=== PATIENT | female | born 2000 | race Caucasian/White ===

== ENCOUNTER 2022-03-31 04:31 | Inpatient (IN) ==
[2022-03-31] MEDS ORDERED: ONDANSETRON INJ 2 MG/ML 2 ML VIAL IV STA ×2 (04:58→15:25)
[2022-03-31] MEDS ORDERED: SODIUM CHLORIDE 0.9% 1000ML 1,000 ML IV SCH (05:00)
[2022-03-31] MEDS: MoRPHine SULFATE 4 MG/ML 1 ML CARP\\VIAL IV PRN ×3 (05:22→18:40)
[2022-03-31 05:51] LABS: Basophils # (auto) 0.07 K/uL (0-0.2); Basophils % (auto) 0.4 %; Eosinophils # (auto) 0.17 K/uL (0-0.50); Eosinophils % (auto) 1.1 %; Hematocrit (blood only) 36.7 % (34.1-44.9); Hemoglobin 12.6 g/dl (12.0-16.0); Immature Granulocytes # (auto) 0.05 K/uL (0.00-0.02); Immature Granulocytes % (auto) 0.3 %; Lymphocytes # (auto) 3.15 K/uL (1.2-3.4); Lymphocytes % (auto) 19.7 %; Mean Corpuscular Hemoglobin 32.3 pg (25.0-34.0); Mean Corpuscular Hgb Conc 34.3 g/dL (32.0-36.0); Mean Corpuscular Volume 94.1 fL (80.0-100.0); Mean Platelet Volume 9.5 fL (9.4-12.3); Monocytes # (auto) 1.22 K/uL (0.24-0.82); Monocytes % (auto) 7.6 %; Neutrophils # (auto) 11.37 K/uL (1.4-6.5); Neutrophils % (auto) 70.9 %; Platelet Count 277 K/uL (130-400); RDW Coefficient of Variation 12.2 % (11.5-14.5); RDW Standard Deviation 42.5 fL (36.4-46.3); White Blood Count 16.03 K/ul (4.8-10.8)
[2022-03-31 05:56] LABS: Appearance Urine Cloudy (Clear); Bacteria Urine Automated 1+ (Negative); Bilirubin Urine Negative (Negative); Blood Urine 1+ (Negative); Color Urine Yellow; Epithelial Cell Urine Auto >30 /lpf (0-5); Glucose Urine UA Negative (Negative); Ketones Urine Negative (Negative); Leukocyte Esterase Urine 2+ (Negative); Nitrite Urine Negative (Negative); Protein Urine 2+ (Negative); Specific Gravity Urine 1.017 (1.000-1.030); Urobilinogen Urine Negative (Negative); WBC Urine Automated >30 /hpf (0-5); pH Urine 5.5 (4.5-7.5)
[2022-03-31 06:13] LABS: Albumin Globulin Ratio 1.3 (0.9-2); Albumin Level 4.3 gm/dl (3.4-5.0); BUN Creatinine Ratio 23.9 (10-20); Bilirubin,Total 0.7 mg/dl (0.2-1.0); Calcium 9.8 mg/dl (8.5-10.1); Creatinine Clr Calc Pharmacy 118.5 ml/min; Est GFR (African American) 144.6 ml/min; Est GFR (Non-African American) 124.8 ml/min; Globulin 3.2 gm/dl (2.5-4.0); Potassium 3.7 mmol/L (3.5-5.1); Total Protein 7.5 gm/dl (6.0-8.3)
[2022-03-31] MEDS ORDERED: cefTRIAXone SODIUM 1,000 MG in DEXTROSE 5% AD-VAN 50 ML IV STA (06:44)
[2022-03-31] MEDS ORDERED: OPTIRAY 350 100ml IV ONE (07:20)
--- NOTE | 2022-03-31 07:21 | Emergency Department Note ---
ED Visit Note Patient case signed out to me at 0700 hrs. by Krish Tracy PA-C at shift change on 03/31/2022. Patient was pending CT scan of the abdomen/pelvis with IV and oral contrast. Please refer to his note regarding chief complaint, ROS, HPI, PE, MDM and decision-making until point of signout. CT scan did result with dictated report as below. In the setting of right flank pain with an infected renal lesion with associated cystitis/right-sided pyelitis I do believe that further evaluation and management in the inpatient setting is warranted. Patient a lreafara underwent IV antibiotics as ordered by Krish Tracy PA-C. Case then discussed with the urology service, OSWALDO Woodson at 8:12 AM and subsequently [facility] 0915[facility]. Please refer to further documentation regarding her stay. I did add on additional blood work studies with blood cultures pending. CT OF THE ABDOMEN AND PELVIS WITH CONTRAST CLINICAL HISTORY: Right abdominal pain. hx kidney cyst. COMPARISON STUDY: None. TECHNIQUE: Following IV administration of 85 mL of Optiray, axial images of the abdomen and pelvis were obtained from the lung bases to the proximal femurs. Images were reviewed in the axial, sagittal, and coronal planes. IV contrast was administered without complication. Automated exposure control was utilized for the study. A dose lowering technique was utilized adhering to the principles of ALARA. CT DOSE: 305.65 mGy.cm FINDINGS: Groundglass opacities within the right middle lobe favors atelectasis. No pneumatosis, free air or portal venous gas is present. The liver, spleen, adrenal glands, left kidney and pancreas are normal. Note is made of a 5.5 x 4.8 x 4.4 cm hypodense lesion within the upper pole of the right kidney. There is mild enhancement of the wall with possible subtle septation. There is a small amount of adjacent fluid. There is no hydronephrosis. Bladder wall thickening is noted with increased mucosal enhancement. In addition, there is subtle enhancement of the right ureter. There are no urinary calculi. No evidence for a bowel obstruction. The appendix is normal. Small amount of fluid within the pelvis is present. Major vasculature is patent. IMPRESSION: 5.5 cm right upper pole renal lesion with mildly thickened, enhancing wall and adjacent fluid. This is suggestive of an infected renal cyst. Associated cystitis and right-sided pyelitis. ACT 112: Negative or not required by law. Electronically signed by: Lance Gerard M.D. 03/31/2022 7:50 AM .
--- NOTE | 2022-03-31 07:52 | CT Scan Report ---
CT OF THE ABDOMEN AND PELVIS WITH CONTRAST CLINICAL HISTORY: Right abdominal pain. hx kidney cyst. COMPARISON STUDY: None. TECHNIQUE: Following IV administration of 85 mL of Optiray, axial images of the abdomen and pelvis we re obtained from the lung bases to the proximal femurs. Images were reviewed in the axial, sagittal, and coronal planes. IV contrast was administered without complication. Automated exposure control wa s utilized for the study. A dose lowering technique was utilized adhering to the principles of ALARA . CT DOSE: 305.65 mGy.cm FINDINGS: Groundglass opacities within the right middle lobe favors atelectasis. No pneumatosis, free air or portal venous gas is present. The liver, spleen, adrenal glands, left kidney and pancreas are normal. Note is made of a 5.5 x 4.8 x 4.4 cm hypodense lesion within the upper pole of the right kid beverley. There is mild enhancement of the wall with possible subtle septation. There is a small amount of adjacent fluid. There is no hydronephrosis. Bladder wall thickening is noted with increased mucosal enhancement. In addition, there is subtle enhancement of the right ureter. There are no urinary calcu li. No evidence for a bowel obstruction. The appendix is normal. Small amount of fluid within the pel vis is present. Major vasculature is patent. IMPRESSION: 5.5 cm right upper pole renal lesion with mildly thickened, enhancing wall and adjacent f luid. This is suggestive of an infected renal cyst. Associated cystitis and right-sided pyelitis. ACT 112: Negative or not required by law. Electronically signed by: Lance Gerard M.D. 03/31/2022 7:50 AM
--- NOTE | 2022-03-31 11:21 | Urology Consultation ---
Date of Consultation March 31, 2022 Assessment & Plan (1) Pyelonephritis: (2) Renal cyst, right: (3) Right flank pain: Plan 21-year-old female admitted with severe right flank pain secondary to possible infected right renal cyst, pyelonephritis. -CT abdomen pelvis demonstrated a 5.5 cm right upper pole renal lesion with mildly thickened, enhancing wall and adjacent fluid. This is suggestive of an infected renal cyst with associated cystitis and right-sided pyelitis. -Low-grade temp this morning at 37.6C. Hemodynamically stable. -Labs show leukocytosis of 16.03 and normal kidney function. -UA with 1+ blood, 2+ LE, 1+bacteria. Urine and blood cultures pending. On IV Ceftriaxone. -No acute intervention warranted at this time. -Recommend continue with supportive care and antibiotic therapy. Follow cultures and tailor as data becomes available. -Will continue to monitor fever curve and clinical status. -Low threshold to transfer for drainage if she does not improve clinically or for any decline in status. -Discussed with hospital team. -Urology will follow closely. Case discussed with Dr. Steven, on-call urologist. Supervising Physician Co-Signing Physician Notes Discussed patient with ROMI. Agree with plan. Agree with note. Reasonable to manage conservatively with antibiotics but if does not improve subjectively or clinically will need transfer to tertiary care center for percutaneous aspiration versus drainage of cyst History of Present Illness Reason for Consultation: Pyelonephritis, ?infected cyst History of Present Illness 21-year-old female who presented to the emergency department today with severe right flank pain and found to have a possible infected renal cyst, associated cystitis/right-sided pyelitis. On arrival she was afebrile and hemodynamically stable. Recheck of temperature earlier this morning showing low-grade temp at 37.6C. Labs revealed a leukocytosis of 16, stable hemoglobin, and normal renal function. Urinalysis notable for 1+ blood, negative nitrate, 2+ LE, >30WBC, 10-30RBC, >30Epi, 1+bacteria. Urine and blood cultures were obtained. She was started on IV ceftriaxone. Patient admitted to medicine for further management. CT abdomen pelvis- 5.5 cm right upper pole renal lesion with mildly thickened, enhancing wall and adjacent fluid. This is suggestive of an infected renal cyst. Associated cystitis and right-sided pyelitis. Urology consulted for pyelonephritis, question of infected cyst. Patient examined at bedside this AM in the ED. Asleep on arrival, awakened to name. No acute distress. Still with right flank pain, managing with IV pain medication. Denies fevers or chills at present. No nausea or vomiting. Has been NPO. Voiding without issue. Denies hematuria or dysuria. Denies baseline urinary symptoms or issues. She does report an incidental finding of a right renal cyst approximately 1-2 years ago. She was seen at [facility] in [facility] for follow-up and was told it was a benign finding and nothing further to do. She has not had a recent follow-up. Denies pertinent family history. 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 Beliefs That Will Affect Care: None Current Living Situation: Family Current Living Situation Comment: at college herself Other Information That Helps Us Care for You: No Feels Safe at Home: Yes Safety Concerns: Feels Safe At This Time Assistive Devices: None Review of Systems Review of Systems: All systems reviewed & are unremarkable except as noted in HPI & below Physical Exam Constitutional: well developed and well nourished; no acute distress Eyes: PERRL, conjunctivae normal, anicteric sclerae ENMT: external ear and nose normal, oropharynx normal Neck: normal visual inspection Respiratory: normal respiratory effort; no respiratory distress and no labored breathing Musculoskeletal: Head/Neck/Chest: normocephalic Skin: No visible rashes or lesions Neurologic: awake Psychiatric: Orientation: alert, oriented x 3 and cooperative Genitourinary: Right sided tenderness with palpation Results & Data ([facility]) Vital Signs (Past 12 Hours) Vital Signs Temp Pulse Pulse Resp BP BP Pulse Ox 03/31/22 09:30 89 21 112/60 97 03/31/22 07:30 37.6 C H 94 H 19 137/88 100 03/31/22 05:30 86 20 107/63 100 03/31/22 04:37 36.4 C L 78 18 113/75 99 O2 Del Method 03/31/22 09:30 Room Air 03/31/22 07:30 Room Air 03/31/22 05:30 Room Air 03/31/22 04:37 Room Air PG Care Time/CCT Total # of Minutes Spent Total Time Spent with Patient: Total time spent is greater than 50% in coordination of care (as documented) at patient's floor/unit and/or counseling patient: Coding Level of Care Code INP/OBS CONSULT LVL 3, 45 MIN Diagnoses Pyelonephritis N12 Renal cyst, right N28.1 Right flank pain R10.9
[2022-03-31] MEDS ORDERED: ACETAMINOPHEN 1,000 MG/100 ML VIAL IV STA (15:29)
[2022-03-31] MEDS ORDERED: ACETAMINOPHEN 325 MG TAB PO PRN (15:29)
[2022-03-31] MEDS: SODIUM CHLORIDE 0.9% 1000ML 1,000 ML IV SCH ×2 (15:38→22:17)
[2022-03-31] MEDS: ACETAMINOPHEN 325 MG TAB PO SCH (19:32)
--- NOTE | 2022-03-31 22:10 | History & Physical Report ---
Date of Service March 31, 2022 Assessment & Plan (1) Pyelonephritis: Plan: Acute pyelonephritis in a 21 yo female with 1 week of right flank pain will continue IV antibiotics: 1 [address] on IVF await cultures. Prior to being consulted: blood cultures were drawn after antibiotics were given by ED. Urine culture was obtained prior to antibiotics. consulted Urology. (2) Sepsis due to urinary tract infection: Plan: Leukocytosis, tachycardia, fever due to above. will monitor. Doubt abscess. If no improvement, will consider transfer to tertiary center for drainage. lactic acid was normal (3) Renal cyst, right: Plan: doubt this is playing any role Admission and Anticipated Discharge Date Admission Date: March 31, 2022 History of Present Illness Chief Complaint: right flank pain Primary Care Provider: [facility] 21 yo female with history of a right renal cyst presents tot ED with right sided flank pain that began about 1 week ago. Pain was dull and non radiating, but gradually worsened to the point where the pain woke her up at 3 am this morning. Patient reports having subjective fever, nausea. Patient reports no other symptoms, such as urgency, dysuria. Patient was found to be in sepsis in the ED, tachycardia, fever, and leukocytosis. Hospitalist consult was called. 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 Beliefs That Will Affect Care: None Current Living Situation: Family Current Living Situation Comment: at college herself Other Information That Helps Us Care for You: No Feels Safe at Home: Yes Safety Concerns: Feels Safe At This Time Assistive Devices: None Review of Systems Constitutional: + fever, + chills, + body aches and + fatigue Eyes: no blind spots Ear, Nose, Mouth, Throat: no ear pain and no tinnitus Respiratory: no cough Cardiovascular: no chest pain Gastrointestinal: no abdominal pain Genitourinary: no dysuria and no urinary hesitancy Musculoskeletal: + back pain Integumentary: no acne Neurologic: no gait abnormality Psychiatric: no behavioral changes Endocrine: no fatigue Hematologic / Lymphatic: no easy bleeding Allergy / Immunological: no GI upset with certain foods Physical Exam Constitutional: WD/WN, vitals as above Eyes: PERRL, conjunctivae normal, anicteric sclerae ENMT: external ear and nose normal, oropharynx normal Neck: trachea midline, no thyromegaly Respiratory: normal respiratory effort, lungs clear to auscultation Cardiovascular: Rate/Rhythm: regular rhythm and + tachycardic Heart Sounds: normal S1 and normal S2 Gastrointestinal (Abdomen): normal bowel sounds, soft, nontender, no hepatosplenomegaly Musculoskeletal: no cyanosis or clubbing, extremities motor strength 5/5 Right CVA tenderness Skin: no rashes, warm and dry Neurologic: PERRL, EOMI, accommodation nl, no face palsy, no dysarthria Psychiatric: A+Ox3, euthymic affect Lymphatic: no cervical or axillary lymphadenopathy Results & Data Results & Data ([facility]) Vital Signs (Past 12 Hours) Vital Signs Temp Pulse Pulse Resp BP Pulse Ox O2 Del Method 03/31/22 18:34 37 C 88 16 119/67 96 Room Air 03/31/22 17:00 71 18 102/70 98 Room Air 03/31/22 17:48 37.2 C 03/31/22 15:05 37.9 C H 87 16 97 Room Air 03/31/22 15:04 37.9 C H 03/31/22 14:58 86 17 105/69 97 Room Air 03/31/22 11:06 89 17 111/64 94 Room Air PG Care Time/CCT Total # of Minutes Spent Total Time Spent with Patient: Total time spent is greater than 50% in coordination of care (as documented) at patient's floor/unit and/or counseling patient: Coding Level of Care Code 56669 INT INP/OBS CARE 3/75MIN Diagnoses Pyelonephritis N12 Sepsis due to urinary tract infection A41.9; N39.0 Renal cyst, right N28.1
[2022-04-01] MEDS: ACETAMINOPHEN 325 MG TAB PO SCH ×2 (00:36→06:16)
[2022-04-01] MEDS: SODIUM CHLORIDE 0.9% 1000ML 1,000 ML IV SCH ×4 (04:44→20:39)
--- NOTE | 2022-04-01 05:30 | Emergency Department Note ---
History of Present Illness General Chief complaint: Flank Pain Stated complaint: CYST ON RIGHT KIDNEY, NAUSEA Time Seen by Provider: 03/31/22 04:42 History of Present Illness Maximum Pain Intensity: 7 This is a 21-year-old female presenting to the emergency department for evaluation of pain in her right side back/flank. This has been slowly increasing over the past week but this worsened tonight when she woke up. The patient is usually healthy, but reports that she does have cyst on her right kidney. Patient has not had fevers, but is very nauseated. No significant change in going to the bathroom. She does not have a history of abdominal surgery. She rates her current discomfort a 7/10. No chest pain, chest tightness, shortness of breath. No rash. She denies . Home Medications Medication Instructions Recorded Confirmed Type No Known Home Medications 12/28/19 12/28/19 History Allergies Allergy/AdvReac Type Severity Reaction Status Date / Time No Known Allergies Allergy Verified 12/28/19 06:42 Past Med/Surg History Medical History No pertinent family history No pertinent past medical history Surgical History No pertinent past surgical history Social History Smoking Status: Never smoker Second Hand Exposure: No; Do You Dip or Chew Tobacco: No; Hx Alcohol Use: Yes Hx Substance Use: No Preferred Language: [place] Zealander Communication Ability: Effective Emt B Required: No Beliefs That Will Affect Care: None Current Living Situation: Family Current Living Situation Comment: at college herself Other Information That Helps Us Care for You: No Feels Safe at Home: Yes Safety Concerns: Feels Safe At This Time Assistive Devices: None Review of Systems A total of 10 systems reviewed and were otherwise negative Physical Exam Vital Signs Vital Signs - 24 hr 03/31/22 05:30 03/31/22 07:30 Temperature 37.6 C H Temperature Source Oral Pulse Rate [Right Radial] 86 94 H Pulse Rhythm [Right Radial] Regular Pulse Strength [Right Radial] Normal Respiratory Rate 20 19 Respiratory Effort / Characteristics Non-Labored Spontaneous Non-Labored Spontaneous Respiratory Depth Normal Normal Respiratory Pattern Regular Regular Blood Pressure [Right Arm] 107/63 137/88 Blood Pressure Mean [Right Arm] 77 104 Blood Pressure Position [Right Arm] Lying Pulse Oximetry 100 100 Oxygen Delivery Method Room Air Room Air VITALS: Vitals are noted on the nurse's note and reviewed by myself. Vital signs stable. GENERAL: Well-developed, well-nourished, white female, who is uncomfortable on presentation. HEAD: Normocephalic atraumatic. HEART: Regular rate and rhythm without murmurs gallops or rubs. LUNGS: Clear to auscultation bilaterally without wheezes, rales or rhonchi. No retractions or accessory muscle use. ABDOMEN: Positive normal bowel sounds x 4. Soft, nontender, without masses or organomegaly. No guarding or rebound tenderness. MUSCULOSKELETAL: No muscle atrophy, erythema, or edema noted. Full range of motion in all extremities. No tenderness to palpation. Normal gait. Strength 5/5 throughout. NEURO: Patient was alert and oriented to person place and time. CN II through XII grossly intact. Course Administered Medications Acetaminophen (Acetaminophen 325 Mg Tab) 650 mg PO Q6HWA [facility] Stop: 04/30/22 19:59 Last Admin: 04/01/22 00:36 Dose: 650 mg Documented By: Admin: 03/31/22 19:32 Dose: 650 mg Documented By: JORDIN Sodium Chloride (Nss 1000ml) 1,000 mls @ 150 mls/hr IV .Q6H40M [facility] Stop: 04/01/22 11:29 Last Admin: 04/01/22 04:44 Dose: 150 mls/hr Documented By: Infusion: 04/01/22 04:43 Dose: 0 mls/hr Documented By: Admin: 03/31/22 22:17 Dose: 150 mls/hr Documented By: Infusion: 03/31/22 22:17 Dose: 150 mls/hr Documented By: Admin: 03/31/22 15:38 Dose: 150 mls/hr Documented By: JACQUIE Morphine Sulfate (Morphine Sulfate 4 Mg/Ml 1 Ml Carp\Vial) 4 mg IV Q30M PRN PRN Reason: Pain Stop: 04/14/22 04:57 Last Admin: 03/31/22 18:40 Dose: 4 mg Documented By: Admin: 03/31/22 09:34 Dose: 4 mg Documented By: Admin: 03/31/22 05:22 Dose: 4 mg Documented By: JLUIS Discontinued Medications Sodium Chloride (Nss 1000ml) 1,000 mls @ 999 mls/hr IV .Q1H1M BIN Stop: 03/31/22 06:00 Last Infusion: 03/31/22 06:26 Dose: 0 mls/hr Documented By: Admin: 03/31/22 05:22 Dose: 999 mls/hr Documented By: JLUIS Ceftriaxone Sodium 1,000 mg/ (Dextrose) 50 mls @ 100 mls/hr IV NOW STA Stop: 03/31/22 07:13 Last Infusion: 03/31/22 08:14 Dose: 0 mls/hr Documented By: Admin: 03/31/22 07:43 Dose: 100 mls/hr Documented By: JLUIS Acetaminophen (Ofirmev) 1,000 mg in 100 mls @ 400 mls/hr IV NOW STA Stop: 03/31/22 15:43 Last Infusion: 03/31/22 18:40 Dose: 0 mls/hr Documented By: Admin: 03/31/22 15:37 Dose: 400 mls/hr Documented By: JACQUIE Ioversol (Optiray 350 100ml) 85 ml IV ONCE ONE Stop: 03/31/22 07:21 Last Admin: 03/31/22 07:21 Dose: 85 ml Documented By: JEFFERSON Ondansetron HCl (Ondansetron Inj 2 Mg/Ml 2 Ml Vial) 4 mg IV NOW STA Stop: 03/31/22 04:59 Last Admin: 03/31/22 05:22 Dose: 4 mg Documented By: JLUIS Ondansetron HCl (Ondansetron Inj 2 Mg/Ml 2 Ml Vial) 4 mg IV NOW STA Stop: 03/31/22 15:26 Last Admin: 03/31/22 15:36 Dose: 4 mg Documented By: JACQUIE Medical Decision Making Differential Diagnosis Differential diagnosis: Etiologies such as shingles, pyelonephritis/UTI, renal colic, appendicitis, diverticulitis, mesenteric ischemia, torsion, aortic pathology, infections, inflammatory bowel disease, bowel obstruction, PUD, biliary pathology, as well as others were entertained. Laboratory Data 03/31/22 05:25 03/31/22 05:25 Lab Results 03/31/22 03/31/22 03/31/22 Range/Units 05:25 05:25 05:25 WBC 16.03 H (4.8-10.8) K/ul RBC 3.90 L (3.93-5.22) M/uL Hgb 12.6 (12.0-16.0) g/dl Hct 36.7 (34.1-44.9) % MCV 94.1 (80.0-100.0) fL MCH 32.3 (25.0-34.0) pg MCHC 34.3 (32.0-36.0) g/dL RDW Std Deviation 42.5 (36.4-46.3) fL RDW Coeff of Maximo 12.2 (11.5-14.5) % Plt Count 277 (130-400) K/uL MPV 9.5 (9.4-12.3) fL Immature Gran % (Auto) 0.3 % Neut % (Auto) 70.9 % Lymph % (Auto) 19.7 % [place] % (Auto) 7.6 % Eos % (Auto) 1.1 % Baso % (Auto) 0.4 % Neut # (Auto) 11.37 H (1.4-6.5) K/uL Lymph # (Auto) 3.15 (1.2-3.4) K/uL [place] # (Auto) 1.22 H (0.24-0.82) K/uL Eos # (Auto) 0.17 (0-0.50) K/uL Baso # (Auto) 0.07 (0-0.2) K/uL Immature Gran # (Auto) 0.05 H (0.00-0.02) K/uL Sodium 137 (136-145) mmol/L Potassium 3.7 (3.5-5.1) mmol/L Chloride 103 (98-107) mmol/L Carbon Dioxide 28 (21-32) mmol/L Anion Gap 6 (3-11) BUN 16 (6-23) mg/dl Creatinine 0.67 (0.6-1.2) mg/dl Est Cr Clr Drug Dosing 118.5 ml/min Est GFR ( Amer) 144.6 ml/min Est GFR (Non-Af Amer) 124.8 ml/min BUN/Creatinine Ratio 23.9 H (10-20) Glucose 86 (70-99(Fasting)) mg/dl Lactate (0.4-2.0) mmol/L Calcium 9.8 (8.5-10.1) mg/dl Total Bilirubin 0.7 (0.2-1.0) mg/dl AST 23 (13-39) U/L ALT 25 (7-52) U/L Alkaline Phosphatase 56 (34-104) U/L Total Protein 7.5 (6.0-8.3) gm/dl Albumin 4.3 (3.4-5.0) gm/dl Globulin 3.2 (2.5-4.0) gm/dl Albumin/Globulin Ratio 1.3 (0.9-2) Lipase 16 (11-82) U/L Procalcitonin (0-0.5) ng/ml Urine Color Yellow Urine Appearance Cloudy A (Clear) Urine pH 5.5 (4.5-7.5) Ur Specific [place] 1.017 (1.000-1.030) Urine Protein 2+ H (Negative) Urine Glucose (UA) Negative (Negative) Urine Ketones Negative (Negative) Urine Blood 1+ H (Negative) Urine Nitrite Negative (Negative) Urine Bilirubin Negative (Negative) Urine Urobilinogen Negative (Negative) Ur Leukocyte Esterase 2+ H (Negative) Urine WBC (Auto) >30 H (0-5) /hpf Urine RBC (Auto) 10-30 H (0-4) /hpf U Hyaline Cast (Auto) 1-5 (0-5) /lpf U Epithel Cells (Auto) >30 H (0-5) /lpf Urine Bacteria (Auto) 1+ H (Negative) POC Ur Test (NEG) SARS-CoV-2, RNA, NAAT (NEGATIVE) 03/31/22 03/31/22 03/31/22 Range/Units 05:25 08:27 08:27 WBC (4.8-10.8) K/ul RBC (3.93-5.22) M/uL Hgb (12.0-16.0) g/dl Hct (34.1-44.9) % MCV (80.0-100.0) fL MCH (25.0-34.0) pg MCHC (32.0-36.0) g/dL RDW Std Deviation (36.4-46.3) fL RDW Coeff of Maximo (11.5-14.5) % Plt Count (130-400) K/uL MPV (9.4-12.3) fL Immature Gran % (Auto) % Neut % (Auto) % Lymph % (Auto) % [place] % (Auto) % Eos % (Auto) % Baso % (Auto) % Neut # (Auto) (1.4-6.5) K/uL Lymph # (Auto) (1.2-3.4) K/uL [place] # (Auto) (0.24-0.82) K/uL Eos # (Auto) (0-0.50) K/uL Baso # (Auto) (0-0.2) K/uL Immature Gran # (Auto) (0.00-0.02) K/uL Sodium (136-145) mmol/L Potassium (3.5-5.1) mmol/L Chloride (98-107) mmol/L Carbon Dioxide (21-32) mmol/L Anion Gap (3-11) BUN (6-23) mg/dl Creatinine (0.6-1.2) mg/dl Est Cr Clr Drug Dosing ml/min Est GFR ( Amer) ml/min Est GFR (Non-Af Amer) ml/min BUN/Creatinine Ratio (10-20) Glucose (70-99(Fasting)) mg/dl Lactate 0.9 (0.4-2.0) mmol/L Calcium (8.5-10.1) mg/dl Total Bilirubin (0.2-1.0) mg/dl AST (13-39) U/L ALT (7-52) U/L Alkaline Phosphatase (34-104) U/L Total Protein (6.0-8.3) gm/dl Albumin (3.4-5.0) gm/dl Globulin (2.5-4.0) gm/dl Albumin/Globulin Ratio (0.9-2) Lipase (11-82) U/L Procalcitonin < 0.05 (0-0.5) ng/ml Urine Color Urine Appearance (Clear) Urine pH (4.5-7.5) Ur Specific [place] (1.000-1.030) Urine Protein (Negative) Urine Glucose (UA) (Negative) Urine Ketones (Negative) Urine Blood (Negative) Urine Nitrite (Negative) Urine Bilirubin (Negative) Urine Urobilinogen (Negative) Ur Leukocyte Esterase (Negative) Urine WBC (Auto) (0-5) /hpf Urine RBC (Auto) (0-4) /hpf U Hyaline Cast (Auto) (0-5) /lpf U Epithel Cells (Auto) (0-5) /lpf Urine Bacteria (Auto) (Negative) POC Ur Test NEG (NEG) SARS-CoV-2, RNA, NAAT (NEGATIVE) 03/31/22 Range/Units 08:30 WBC (4.8-10.8) K/ul RBC (3.93-5.22) M/uL Hgb (12.0-16.0) g/dl Hct (34.1-44.9) % MCV (80.0-100.0) fL MCH (25.0-34.0) pg MCHC (32.0-36.0) g/dL RDW Std Deviation (36.4-46.3) fL RDW Coeff of Maximo (11.5-14.5) % Plt Count (130-400) K/uL MPV (9.4-12.3) fL Immature Gran % (Auto) % Neut % (Auto) % Lymph % (Auto) % [place] % (Auto) % Eos % (Auto) % Baso % (Auto) % Neut # (Auto) (1.4-6.5) K/uL Lymph # (Auto) (1.2-3.4) K/uL [place] # (Auto) (0.24-0.82) K/uL Eos # (Auto) (0-0.50) K/uL Baso # (Auto) (0-0.2) K/uL Immature Gran # (Auto) (0.00-0.02) K/uL Sodium (136-145) mmol/L Potassium (3.5-5.1) mmol/L Chloride (98-107) mmol/L Carbon Dioxide (21-32) mmol/L Anion Gap (3-11) BUN (6-23) mg/dl Creatinine (0.6-1.2) mg/dl Est Cr Clr Drug Dosing ml/min Est GFR ( Amer) ml/min Est GFR (Non-Af Amer) ml/min BUN/Creatinine Ratio (10-20) Glucose (70-99(Fasting)) mg/dl Lactate (0.4-2.0) mmol/L Calcium (8.5-10.1) mg/dl Total Bilirubin (0.2-1.0) mg/dl AST (13-39) U/L ALT (7-52) U/L Alkaline Phosphatase (34-104) U/L Total Protein (6.0-8.3) gm/dl Albumin (3.4-5.0) gm/dl Globulin (2.5-4.0) gm/dl Albumin/Globulin Ratio (0.9-2) Lipase (11-82) U/L Procalcitonin (0-0.5) ng/ml Urine Color Urine Appearance (Clear) Urine pH (4.5-7.5) Ur Specific [place] (1.000-1.030) Urine Protein (Negative) Urine Glucose (UA) (Negative) Urine Ketones (Negative) Urine Blood (Negative) Urine Nitrite (Negative) Urine Bilirubin (Negative) Urine Urobilinogen (Negative) Ur Leukocyte Esterase (Negative) Urine WBC (Auto) (0-5) /hpf Urine RBC (Auto) (0-4) /hpf U Hyaline Cast (Auto) (0-5) /lpf U Epithel Cells (Auto) (0-5) /lpf Urine Bacteria (Auto) (Negative) POC Ur Test (NEG) SARS-CoV-2, RNA, NAAT NEGATIVE (NEGATIVE) MDM Narrative Physical exam and history were performed. Nursing notes, EMR, and Medication List were personally reviewed. No social concerns were identified as barriers to patients care. Patient appears to have right flank pain bringing her to the ER. She does seem somewhat uncomfortable on presentation. IV access was established and labs were obtained. She was hydrated and medicated as above. Because of her symptoms she was sent to CT scan for evaluation. The patient's blood work is as above and was reviewed. She does have an elevated white count of 16,000. She does not have significant anemia. There is associated left shift. Transaminases are not diagnostic. Urine is highly suggestive of infection and she was started on IV Rocephin here in the ER. Patient remained in stable condition until the time of shift change. I do have concern that she may have pyelonephritis or other process. The case was discussed with my Colleague Jericho Choudhary PA-C, who will assume care at this time. Please see Mr. Choudhary's dictation for further patient course, plan, and disposition pending CT results. The chart was completed utilizing [employer] Voice Recognition Software. Grammatical errors, random word insertions, pronoun errors, and incomplete sentences are an occasional consequence of this system due to software limitations, ambient noise, and hardware issues. Any formal questions or concerns about the content, text, or information contained within the body of this dictation should be directly addressed to the provider for clarification. . Impression & Plan Right flank pain, Renal cyst, right, Pyelonephritis Discharge Plan Visit Data Chief Complaint: Flank Pain Stated Complaint: CYST ON RIGHT KIDNEY, NAUSEA ED Provider: Silvestre Lima ED Midlevel Provider: Jericho Choudhary Discharge Problem: Right flank pain, Renal cyst, right, Pyelonephritis Patient Disposition: Admitted As Inpatient Discharge Instructions Interventions: ED Discharge Assessment Last Done: 03/31/22 11:46
[2022-04-01] MEDS ORDERED: cefTRIAXone SODIUM 1,000 MG in DEXTROSE 5% AD-VAN 50 ML IV SCH (06:00)
[2022-04-01] MEDS: MoRPHine SULFATE 4 MG/ML 1 ML CARP\\VIAL IV PRN ×6 (06:13→20:20)
[2022-04-01 07:04] LABS: Hematocrit (blood only) 31.8 % (34.1-44.9); Mean Corpuscular Hemoglobin 32.9 pg (25.0-34.0); Mean Corpuscular Hgb Conc 34.6 g/dL (32.0-36.0); Mean Corpuscular Volume 95.2 fL (80.0-100.0); Mean Platelet Volume 9.6 fL (9.4-12.3); Platelet Count 200 K/uL (130-400); RDW Coefficient of Variation 12.3 % (11.5-14.5); RDW Standard Deviation 43.1 fL (36.4-46.3); Red Blood Count 3.34 M/uL (3.93-5.22); White Blood Count 16.84 K/ul (4.8-10.8)
[2022-04-01 07:37] LABS: C Reactive Protein 16.28 mg/dl (0-0.5); Calcium 8.5 mg/dl (8.5-10.1); Creatinine Clr Calc Pharmacy 132.3 ml/min; Est GFR (Non-African American) 129.4 ml/min; Potassium 3.7 mmol/L (3.5-5.1)
--- NOTE | 2022-04-01 08:17 | Urology Progress Note ---
Date of Service April 01, 2022 Assessment & Plan (1) Renal cyst, right: (2) Right flank pain: Plan 21-year-old female with right flank pain, UTI and CT scan showing possible large infected right renal cyst Patient subjectively improving. Afebrile. Continue conservative measures with broad-spectrum antibiotics. Follow-up urine cultures and treat accordingly Based on sensitivities, best oral options for antibiotics would be ciprofloxacin or Bactrim due to tissue penetration No acute urologic intervention necessary. If patient were to subjectively or objectively worsen, recommend transfer to tertiary care center for aspiration versus drain placement of suspected infected cyst Urology to follow Admission and Anticipated Discharge Date Admission Date: March 31, 2022 Subjective No acute issues overnight. Afebrile with stable vitals outside of solitary tachycardia of 110 last night. Subjectively reports feeling better today. Still does report some right flank pain. Labs show a stable white blood cell count of 16.8, hemoglobin of 11, and creatinine of 0.6. Urine culture is growing prelim gram-negative bacilli and blood cultures are pending. Patient is currently on ceftriaxone. Review of Systems Review of Systems: 14 point review of systems negative outside of what is listed above in HPI Physical Exam Physical Exam: General: Alert and oriented, no acute distress, nontoxic- appearing HEENT: Normocephalic, mucous membranes moist Pulmonary: Nonlabored respirations Abdomen: Nondistended : Mild right CVA tenderness. Extremities: Moves all 4 spontaneously Neuro: No gross deficits Skin: Warm, dry, no rashes noted Results & Data ([facility]) Vital Signs (Past 12 Hours) Vital Signs Temp Pulse Resp BP Pulse Ox O2 Del Method 03/31/22 22:14 37.4 C 110 H 18 101/66 96 Room Air PG Care Time/CCT Total # of Minutes Spent Total Time Spent with Patient: Total time spent is greater than 50% in coordination of care (as documented) at patient's floor/unit and/or counseling patient: Coding Level of Care Code 64407 SUB INP/OBS CARE 2/35MIN Diagnoses Renal cyst, right N28.1 Right flank pain R10.9
[2022-04-01] MEDS ORDERED: ACETAMINOPHEN 325 MG TAB PO PRN (09:33)
[2022-04-01] MEDS: MEROPENEM 1,000 MG in SYRINGE 0 ML IV SCH ×2 (11:16→18:23)
--- NOTE | 2022-04-01 11:44 | Ultrasound Report ---
US renal/blad retro comp CLINICAL HISTORY: renal cyst/ possible abscess TECHNIQUE: Multiple sonographic real-time images of the kidneys and bladder were obtained. COMPARISON: Comparison is made to CT abdomen pelvis 03/31/2022 FINDINGS: The right kidney measures 14.7 cm in length, and the left kidney measures 11.6 cm in length. The right kidney is normal in size, contour, cortical thickness, and echogenicity. No hydronephrosis is identified. A complex cystic lesion is in the right kidney superior pole, no septations or solid n odules are seen. No perinephric fluid collection is seen. The left kidney is normal in size, contour, cortical thickness and echogenicity. No hydronephrosis i s identified. No renal lesion is identified. No perinephric fluid collection is seen. The bladder is partially distended. No large intraluminal mass is seen. IMPRESSION: The right superior pole cyst is mildly irregular in contour. This may represent a complex cyst or octavio al abscess. ACT 112: Negative or not required by law. Electronically signed by: Sal Travis M.D. 04/01/2022 11:42 AM
--- NOTE | 2022-04-01 15:57 | Hospitalist Progress Note ---
Date of Service April 01, 2022 Assessment & Plan (1) Pyelonephritis: Plan: Acute pyelonephritis in a 21 yo female with 1 week of right flank pain will continue IV antibiotics: 1 [address] on IVF await cultures: growing gram negative bacilli, given she continues to have fevers, will repeat blood cultures and switch to antibiotic to meropenem. updated family at bedside. (2) Sepsis due to urinary tract infection: Plan: Leukocytosis, tachycardia, fever due to above. will monitor. Doubt abscess. If no improvement, will consider transfer to tertiary center for drainage. lactic acid was normal (3) Renal cyst, right: Plan: doubt this is playing any role Admission and Anticipated Discharge Date Admission Date: March 31, 2022 Subjective Patient reprots her pain has improved, it is still present from yesterday but it is milder. Patient reports intermittent subjective fevers. Patient has no new symptoms. Review of Systems Review of Systems: All systems reviewed & are unremarkable except as noted in HPI & below Physical Exam Constitutional: WD/WN, vitals as above Eyes: PERRL, conjunctivae normal, anicteric sclerae ENMT: external ear and nose normal, oropharynx normal Neck: trachea midline, no thyromegaly Respiratory: normal respiratory effort, lungs clear to auscultation Cardiovascular: Rate/Rhythm: regular rhythm and + tachycardic Heart Sounds: normal S1 and normal S2 Gastrointestinal (Abdomen): normal bowel sounds, soft, nontender, no hepatosplenomegaly Musculoskeletal: no cyanosis or clubbing, extremities motor strength 5/5 Skin: no rashes, warm and dry Neurologic: PERRL, EOMI, accommodation nl, no face palsy, no dysarthria Psychiatric: A+Ox3, euthymic affect Lymphatic: no cervical or axillary lymphadenopathy Results & Data Results & Data ([facility]) Vital Signs (Past 12 Hours) Vital Signs Temp Pulse Pulse Resp BP BP Pulse Ox 04/01/22 15:32 37.7 C H 105 H 14 96/61 L 96 04/01/22 12:00 37.5 C 105 H 16 102/61 96 04/01/22 10:00 37.6 C H 108 H 16 100/64 96 04/01/22 09:29 38 C H 118 H 16 101/63 96 04/01/22 09:18 38.2 C H 132 H 16 92/53 L 93 O2 Del Method 04/01/22 15:32 Room Air 04/01/22 12:00 Room Air 04/01/22 10:00 Room Air 04/01/22 09:29 Room Air 04/01/22 09:18 Room Air PG Care Time/CCT Total # of Minutes Spent Total Time Spent with Patient: Total time spent is greater than 50% in coordination of care (as documented) at patient's floor/unit and/or counseling patient: Coding Level of Care Code 67843 SUB INP/OBS CARE 3/50MIN Diagnoses Pyelonephritis N12 Sepsis due to urinary tract infection A41.9; N39.0 Renal cyst, right N28.1 Time Spent (min) 60
[2022-04-01 16:29] LABS: Hematocrit (blood only) 34.1 % (34.1-44.9); Hemoglobin 11.7 g/dl (12.0-16.0); Mean Corpuscular Hemoglobin 32.5 pg (25.0-34.0); Mean Corpuscular Hgb Conc 34.3 g/dL (32.0-36.0); Mean Corpuscular Volume 94.7 fL (80.0-100.0); Mean Platelet Volume 9.7 fL (9.4-12.3); Platelet Count 179 K/uL (130-400); RDW Coefficient of Variation 12.4 % (11.5-14.5); RDW Standard Deviation 43.4 fL (36.4-46.3); White Blood Count 19.82 K/ul (4.8-10.8)
[2022-04-01 16:46] LABS: Basophils # (auto) 0.06 K/uL (0-0.2); Basophils % (auto) 0.3 %; Eosinophils # (auto) 0.01 K/uL (0-0.50); Eosinophils % (auto) 0.1 %; Lymphocytes # (auto) 0.76 K/uL (1.2-3.4); Lymphocytes % (auto) 3.8 %; Monocytes # (auto) 0.87 K/uL (0.24-0.82); Monocytes % (auto) 4.4 %; Neutrophils # (auto) 17.92 K/uL (1.4-6.5); Neutrophils % (auto) 90.4 %
[2022-04-01 16:47] LABS: BUN Creatinine Ratio 8.1 (10-20); C Reactive Protein 26.98 mg/dl (0-0.5); Calcium 8.5 mg/dl (8.5-10.1); Creatinine Clr Calc Pharmacy 107.3 ml/min; Est GFR (African American) 133.3 ml/min; Potassium 3.4 mmol/L (3.5-5.1)
[2022-04-01] MEDS ORDERED: IBUPROFEN 600 MG TAB PO PRN (19:42)
[2022-04-01 20:06] LABS: Appearance Urine Clear (Clear); Bacteria Urine Automated Negative (Negative); Bilirubin Urine Negative (Negative); Blood Urine 1+ (Negative); Color Urine Yellow; Epithelial Cell Urine Auto >30 /lpf (0-5); Glucose Urine UA Negative (Negative); Ketones Urine 1+ (Negative); Leukocyte Esterase Urine Negative (Negative); Nitrite Urine Negative (Negative); Protein Urine 1+ (Negative); RBC Urine Automated 0-4 /hpf (0-4); Specific Gravity Urine 1.008 (1.000-1.030); Urobilinogen Urine Negative (Negative); pH Urine 5.5 (4.5-7.5)
[2022-04-01] MEDS ORDERED: MoRPHine SULFATE 2 MG/ML CARP IV PRN (20:08)
--- NOTE | 2022-04-01 21:33 | Communication Note ---
Date of Service: April 01, 2022 Was notified by charge nurse of persistent fevers and tachycardia. Discussed that patient would likely need transfer to tertiary care center for percutaneous aspiration of right renal cyst given that she has not improved clinically over 36 hours of conservative treatment. Discussed this with primary team. Recommend adding/switching to cipro as this will have better penetration through cyst. Also recommended ramirez catheter.
[2022-04-01] MEDS: CIPROFLOXACIN / D5W 400 MG/200 ML BAG IV SCH (21:57)
[2022-04-01] MEDS: MoRPHine SULFATE 2 MG/ML CARP IV PRN ×2 (21:57→23:59)
[2022-04-02] MEDS ORDERED: OPTIRAY 350 100ml IV ONE (00:22)
[2022-04-02] MEDS: ONDANSETRON INJ 2 MG/ML 2 ML VIAL IV PRN ×2 (00:35→11:50)
[2022-04-02] MEDS: ACETAMINOPHEN 1,000 MG/100 ML VIAL IV SCH ×3 (00:39→16:13)
[2022-04-02] MEDS: NSS + 20MEQ KCL 20 MEQ/1,000 ML BAG IV SCH ×3 (00:53→12:23)
[2022-04-02] MEDS ORDERED: ACETAMINOPHEN 325 MG TAB PO SCH (02:00)
--- NOTE | 2022-04-02 02:01 | CT Scan Report ---
CT abdomen wo/w con HISTORY: 21 years-old Female renal cyst r/o worse perinephric fluid collection follow-up study in a patient with fluid collection of the upper pole right kidney COMPARISON: Renal ultrasound April 01, 2022, CT abdomen and pelvis 03/31/2022 TECHNIQUE: Multiple axial CT images of the abdomen were obtained both with and without the use of 84 mL Optiray 350. A dose lowering technique was used consistent with the principals of ROMÁN. FINDINGS: Trace left and small right pleural effusions with bibasilar dependent consolidation, new from prior. No pneumatosis or pneumoperitoneum. Pectus excavatum. Unremarkable spleen, pancreas, gallbladder and adrenal glands. The liver is within normal limits. Patency of the hepatic and portal veins. Unremarkable left kidney. No renal or ureteral calculi or hydronephrosis. The opacified renal collect ing systems and ureters are within normal limits. Urothelial thickening of the right renal collecting system and ureter with progressively worsened perinephric and periureteral edema. Increased size of the irregular mildly complex fluid hypodense lesion within the superior pole right kidney now measuri ng 5.7 x 4.6 x 6.1 cm, on previous CT study measured 5.5 x 4.8 x 4.4 cm. On yesterday's ultrasound th is lesion measured 5.4 x 4.8 x 4.9 cm. This collection demonstrates Hounsfield of 25 without identifi able enhancement and a few peripheral septations and peripherally thickened wall. No bowel obstruction or bowel wall thickening. The appendix is not definitively seen. Mild generalize d body wall edema. No acute fracture identified. Sigmoidal thoracolumbar scoliosis. IMPRESSION: 1. Increased size of the complex hypoechoic lesion of the superior pole right kidney measuring up to 6.1 cm suggestive of a renal abscess/infected renal cyst. Associated right-sided pyelitis with progre ssively worsened perinephric edema. 2. Trace left and small right pleural effusions with new bibasilar consolidation suggestive of atelec tasis versus pneumonia. ACT 112: Negative or not required by law. The above report was generated using voice recognition software. It may contain grammatical, syntax o r spelling errors. Electronically signed by: Jack Caballero M.D. 04/02/2022 1:59 AM
[2022-04-02 06:31] LABS: BUN Creatinine Ratio 9.4 (10-20); C Reactive Protein 26.99 mg/dl (0-0.5); Calcium 7.9 mg/dl (8.5-10.1); Creatinine Clr Calc Pharmacy 124.1 ml/min; Est GFR (African American) 146.8 ml/min; Est GFR (Non-African American) 126.7 ml/min; Potassium 3.6 mmol/L (3.5-5.1)
[2022-04-02 06:36] LABS: Hematocrit (blood only) 28.3 % (34.1-44.9); Hemoglobin 9.7 g/dl (12.0-16.0); Mean Corpuscular Hemoglobin 32.7 pg (25.0-34.0); Mean Corpuscular Hgb Conc 34.3 g/dL (32.0-36.0); Mean Corpuscular Volume 95.3 fL (80.0-100.0); Mean Platelet Volume 9.5 fL (9.4-12.3); Platelet Count 158 K/uL (130-400); RDW Coefficient of Variation 12.7 % (11.5-14.5); RDW Standard Deviation 43.9 fL (36.4-46.3); Red Blood Count 2.97 M/uL (3.93-5.22); White Blood Count 11.67 K/ul (4.8-10.8)
--- NOTE | 2022-04-02 07:34 | Urology Progress Note ---
Date of Service April 02, 2022 Assessment & Plan (1) Pyelonephritis: (2) Renal cyst, right: (3) Sepsis due to urinary tract infection: Plan 21-year-old female with right flank pain, UTI and CT scan showing possible large infected right renal cyst Fortunately, patient subjectively has improved this morning and labs are improving. That being said, repeat CT scan last night showed that the cyst is gotten slightly bigger and remains concerning for infection. I would recommend transfer to a tertiary care center for percutaneous aspiration versus drain placement. Worse case scenario is she does not require any drainage but at least is in a place that can do that rather quickly as opposed to staying at [facility] where transfers typically can take a significant amount of time. Would not recommend open procedure for drainage due to morbidity associated with that procedure. Continue ciprofloxacin. Urine culture grew out pansensitive E. coli. Recommend Douglass catheter but patient declined Patient can have clear liquid diet. Would hold off on solid food in the event that she does get transferred and would be able to have a procedure at that time Urology to follow. Please notify our service if she clinically worsens. Discussed all of this with patient and her family member Admission and Anticipated Discharge Date Admission Date: March 31, 2022 Subjective Febrile and tachycardic through the day and night. CONY performed yesterday showed similar findings to CT scan. Discussed with primary team last night and recommended transfer for percutaneous aspiration vs drainage of right renal cyst. Currently afebrile and nontachycardic with systolic BP in 90s. WBC has downtrended to 11, creatinine stable, urine culture finalized for teresa sensitive E. coli. Transitioned to cipro. CT scan was performed last night which shows consistent right upper pole renal cyst that has slightly increased in size. There continues to be perinephric stranding. Spoke with patient and family member today. Reports subjective improvement compared to yesterday and last night. Patient declined Douglass catheter last night. Review of Systems Review of Systems: 14 point review of systems negative outside of what is listed above in HPI Physical Exam Physical Exam: General: Alert and oriented, no acute distress HEENT: Normocephalic, mucous membranes moist Cardiovascular: Regular rate Pulmonary: Nonlabored respirations Abdomen: Nondistended : Mild right CVA tenderness. No left CVA tenderness Extremities: Moves all 4 spontaneously Neuro: No gross deficits Skin: Warm, dry, no rashes noted Results & Data ([facility]) Vital Signs (Past 12 Hours) Vital Signs Temp Pulse Pulse Resp BP Pulse Ox O2 Del Method 04/02/22 04:45 36.6 C 78 16 92/56 L 99 Nasal Cannula 04/02/22 00:42 37.3 C 92 H 16 101/63 100 Nasal Cannula 04/01/22 23:20 37.5 C 99 H 18 107/63 95 Nasal Cannula 04/01/22 22:12 38.1 C H 113 H 18 116/63 94 Nasal Cannula 04/01/22 21:26 95 Room Air 04/01/22 21:03 38.8 C H 113 H 20 108/51 L 86 L Room Air 04/01/22 20:05 39.5 C H 123 H 20 107/56 L 90 Room Air O2 Flow Rate 04/02/22 04:45 2 04/02/22 00:42 2 04/01/22 23:20 1 04/01/22 22:12 1 04/01/22 21:26 2 04/01/22 21:03 04/01/22 20:05 PG Care Time/CCT Total # of Minutes Spent Total Time Spent with Patient: Total time spent is greater than 50% in coordination of care (as documented) at patient's floor/unit and/or counseling patient: Coding Level of Care Code 93429 SUB INP/OBS CARE 2/35MIN Diagnoses Pyelonephritis N12 Renal cyst, right N28.1 Sepsis due to urinary tract infection A41.9; N39.0
[2022-04-02] MEDS: CIPROFLOXACIN / D5W 400 MG/200 ML BAG IV SCH (09:42)
[2022-04-02] MEDS: MoRPHine SULFATE 2 MG/ML CARP IV PRN ×3 (13:22→18:18)
--- NOTE | 2022-04-02 19:26 | Discharge Summary ---
Date of Service April 02, 2022 Admission HPI Per Admitting Provider 21 yo female with history of a right renal cyst presents tot ED with right sided flank pain that began about 1 week ago. Pain was dull and non radiating, but gradually worsened to the point where the pain woke her up at 3 am this morning. Patient reports having subjective fever, nausea. Patient reports no other symptoms, such as urgency, dysuria. Patient was found to be in sepsis in the ED, tachycardia, fever, and leukocytosis. Hospitalist consult was called. Principal Diagnosis Pyelonephritis Discharge Exam Constitutional WD/WN, vitals as above Eyes PERRL, conjunctivae normal, anicteric sclerae ENMT external ear and nose normal, oropharynx normal Neck trachea midline, no thyromegaly Respiratory normal respiratory effort, lungs clear to auscultation Cardiovascular Rate/Rhythm: regular rhythm and + tachycardic Heart Sounds: normal S1 and normal S2 Gastrointestinal (Abdomen) normal bowel sounds, soft, nontender, no hepatosplenomegaly Musculoskeletal no cyanosis or clubbing, extremities motor strength 5/5 Skin no rashes, warm and dry Neurologic PERRL, EOMI, accommodation nl, no face palsy, no dysarthria Psychiatric A+Ox3, euthymic affect Lymphatic no cervical or axillary lymphadenopathy Discharge Data Allergies Allergy/AdvReac Type Severity Reaction Status Date / Time No Known Allergies Allergy Verified 12/28/19 06:42 Consultations 03/31/22 09:14 Consult Urology Routine 03/31/22 09:15 ED Decision to Admit Stat 04/01/22 16:06 HIM [Consult Health Information Management] Stat 04/01/22 21:52 Burn CD for patient Stat 04/02/22 05:16 Burn CD for patient Routine Ordered Studies 03/31/22 04:58 CT abd pelvis oral and IV con Stat 04/01/22 09:27 US Kidney Bladder [US renal/blad retro comp] Urgent 04/01/22 23:01 CT abdomen wo/w con Urgent Hospital Course (1) Pyelonephritis: Acute pyelonephritis in a 21 yo female with 1 week of right flank pain will continue IV antibiotics: [address] on IVF await cultures: growing gram negative bacilli, given she continues to have fevers, will repeat blood cultures and switch to antibiotic to meropenem. updated family at bedside. Overnight, patient switched to IV fluoroquinolones. Patient was then transferred to [facility] on 04/02 (2) Sepsis due to urinary tract infection: Leukocytosis, tachycardia, fever due to above. will monitor. Doubt abscess. If no improvement, will consider transfer to tertiary center for drainage. lactic acid was normal (3) Renal cyst, right: doubt this is playing any role Total Time Total Time Spent Total Time Spent (In Minutes): 35 Discharge Plan Discharge Items Patient Disposition: Transfer Acute Care Hospital Reason For Visit: PYELONEPHRITIS WITH POSSIBLE ABCESS Discharge Diagnosis: Right-sided renal cyst Activity: Per Instructions section Non-emergency contact: Primary Care Provider and Urologist Call non-emergency contact if: you have any medication questions, your pain is concerning for you and your temperature is above 101.5 Follow-up/Referrals: [facility] [Primary Care Provider] - Diet: Nothing by Mouth Addtl Attending Provider Instructions: Renal cyst/pyelonephritis -urine culture prelim result for GNR. cyst found on CT abd on admission. Sxs initially presumed to be 2/2 ascending pyelo. -developed acute worsening flank pain with fvr up to 39.5, tachycardia to the 130s, and wbc 19.8. -per urologist, increased c/f an infected cyst (vs. ascending pyelonephritis). Recommended stopping meropenem, starting ciprofloxacin, which pt is currently on, transfer to tertiary facility. -Tachycardia, fever improved following admin. of IV morphine, ibuprofen. Pt now stable. -Repeat CT abdomen showed "increased size of the complex hypoechoic lesion of the superior pole right kidney measuring up to 6.1 cm suggestive of a renal abscess/infected renal cyst." 5.[address] abd on admission on 03/31. From the day team hospitalist note: (1) Pyelonephritis: Plan: Acute pyelonephritis in a 21 yo female with 1 week of right flank pain will continue IV antibiotics: [address] on IVF await cultures: growing gram negative bacilli, given she continues to have fevers, will repeat blood cultures and switch to antibiotic to meropenem. updated family at bedside. (2) Sepsis due to urinary tract infection: Plan: Leukocytosis, tachycardia, fever due to above. will monitor. Doubt abscess. If no improvement, will consider transfer to tertiary center for drainage. lactic acid was normal (3) Renal cyst, right: Plan: doubt this is playing any role Pending Studies at Discharge: No Stand-Alone Forms: My [facility] [employer] Skilled Items Patient informed of condition?: Yes DNR: No Discharge Level of Care: Other Communicable Disease: No Discharge Prognosis: Stable Lines: None Urinary Catheter: No Medications and DC Order Prescriptions: No Action No Known Home Medications Discharge Orders: Discharge Order (Routine); Ordered 04/02/22 Ordered By: Adina Glez Admission Data Admit Date/Time: 03/31/22 09:15 Attending Provider: Sachin Rodríguez Admit Provider: Sachin Rodríguez Primary Care Provider: [facility] Other Providers: Mikhail Steven ; Sachin Rodríguez Coding Level of Care Code HOSP INP/OBS DISCH >30 MIN Diagnoses Pyelonephritis N12 Sepsis due to urinary tract infection A41.9; N39.0 Renal cyst, right N28.1
--- NOTE | 2022-04-02 22:16 | Electrocardiogram Report ---
Test Reason : Blood Pressure : / mmHG Vent. Rate : 105 BPM Atrial Rate : 105 BPM P-R Int : 120 ms QRS Dur : 096 ms QT Int : 336 ms P-R-T Axes : 054 077 -07 degrees QTc Int : 444 ms Sinus tachycardia Nonspecific T wave abnormality Abnormal ECG No previous ECGs available Confirmed by Eyal Núñez ([id number]) on 04/02/2022 10:15:59 PM Referred By: REFERRED SELF Confirmed By:Eyal Núñez
== END 2022-04-02 18:37 | disposition short-term general hospital (02) | DRG 872 ==
LOC: ED 04:31 → EDINP 09:15 → 3E 11:46